=== PATIENT | male | born 1935 | race Caucasian/White ===

== ENCOUNTER → 2021-05-27 | Outpatient (CLI) | payer MEDICARE, OTHER ==
[~2021-05-27] MED LIST: BENICAR; BYSTOLIC; SIMVASTATIN; TRIAMTERENE
== END | disposition home or self-care (01) ==
LOC: LAB 14:17 → LAB SHORT 14:17
DX: E83.51 Hypocalcemia (principal)
CPT/HCPCS: 82306; 83735; 83970

== ENCOUNTER 2023-09-25 09:57 | Day surgery (SDC) | payer MEDICARE, OTHER ==
[~2023-09-25] VITALS: Ht 170.2 cm; Wt 99.0 kg
[~2023-09-25 09:57] MED LIST changes: +AMLO5 PO; +LOSA50 PO; +NEBI10 PO; +TRIHYD253B PO; +VITAMIN D31000 UNI1 PO; +ZOCOR20 MG PO
[2023-09-25 10:37] VITALS: BP 167/85
[2023-09-25 13:00] VITALS: BP 131/101
[2023-09-25 13:15] VITALS: BP 140/82
[2023-09-25 13:30] VITALS: BP 123/67
--- NOTE | 2023-09-25 13:55 | NUR ---
PT AMBULATES TO RESTROOM AND BACK WITHOUT DIFF. PT IV DC'D. CATH INTACT. PRESSURE DSG APPLIED. PT DRESSES SELF WITHOUT DIFF. PT AND DAUGHTER VERBALIZES UNDERSTANDING WRITTEN AND VERBAL INSTRUCTIONS. DENIES QUESTIONS. PT DC TO HOME VIA WC BY DAUGHTER
== END 2023-09-25 13:55 | disposition home or self-care (01) ==
LOC: MHTC 09:57
DX: Z45.010 Encounter for checking and testing of cardiac pacemaker pulse generator [battery] (principal); I10 Essential (primary) hypertension; I49.5 Sick sinus syndrome; G47.33 Obstructive sleep apnea (adult) (pediatric); E78.00 Pure hypercholesterolemia, unspecified; Z79.899 Other long term (current) drug therapy; Z88.1 Allergy status to other antibiotic agents
CPT/HCPCS: 33228; 99152; 99153; C1785; J1644; J2250; J3010; J3370; J7030; J7040